=== PATIENT | female | born 1935 | race African-American/Black ===

== ENCOUNTER 2021-10-14 13:32 | Inpatient (IN) | payer OTHER ==
[2021-10-14 15:48] LABS: VENOUS BASE EXCESS 1.1 mmol/L (-2-2); VENOUS O2 SATURATION 60.6 % (70-80); VENOUS PCO2 41.6 mmHg (38-52); VENOUS PH 7.412 (7.310-7.410)
[2021-10-14 15:56] LABS: BASO % 0.3 % (0-2.0); EOS % 0.5 % (0-4.5); HEMATOCRIT 44.8 % (32.4-45.2); HEMOGLOBIN 14.1 GM/dL (10.7-15.3); LYMPH % 23.8 % (8-40); MCH 26.9 pg (25.7-33.7); MCHC 31.4 g/dl (32.0-36.0); MEAN CELL VOLUME 85.6 fl (80-96); MEAN PLT VOLUME 9.3 fl (7.5-11.1); MONO % 9.5 % (3.8-10.2); NEUT % 65.9 % (42.8-82.8); PLATELET COUNT 168 10^3/uL (134-434); RBC 5.23 M/mm3 (3.60-5.2); WHITE BLOOD COUNT 3.4 K/mm3 (4.0-10.0)
[2021-10-14 16:01] LABS: INR 1.1 (0.83-1.09); PROTHROMBIN TIME (PATIENT) 12.7 SEC (9.7-13.0)
[2021-10-14 16:03] LABS: ACTIVATED PTT 27.4 SECONDS (25.2-36.5)
[2021-10-14 16:05] LABS: CHLORIDE 103 mmol/L (98-107); SODIUM 136 mmol/L (136-145)
[2021-10-14 16:07] LABS: ALBUMIN 3.9 g/dl (3.4-5.0); ANION GAP 6 MMOL/L (8-16); CALCIUM 9.6 mg/dL (8.5-10.1); CO2 27 mmol/L (21-32); GLUCOSE,RANDOM 99 mg/dL (74-106)
[2021-10-14 16:08] LABS: BLOOD UREA NITROGEN 10.1 mg/dL (7-18)
[2021-10-14 16:10] LABS: SGPT/ALT 17 U/L (13-61)
[2021-10-14 16:11] LABS: CREATININE 0.9 mg/dL (0.55-1.3); SGOT/AST 22 U/L (15-37)
[2021-10-14 16:12] LABS: BILIRUBIN,TOTAL 0.9 mg/dL (0.2-1); TOT PROT 7.4 g/dl (6.4-8.2)
[2021-10-14 16:13] LABS: ALK PHOS 100 U/L (45-117)
[2021-10-14] MEDS ORDERED: ASPIRIN 81 MG CHEWABLE TABLETS PO ONE (16:42)
[2021-10-14] MEDS ORDERED: ATORVASTATIN CA 80 MG TABLET (FP) PO ONE (16:55)
[2021-10-14] MEDS ORDERED: ATORVASTATIN CA 80 MG TABLET (FP) ONE (17:52)
[2021-10-14] MEDS ORDERED: ASPIRIN 81 MG CHEWABLE TABLETS ONE (17:52)
[2021-10-14 18:11] LABS: EPI CELLS 25 /uL (0-25.1); HYALINE CASTS 1 /uL (0-3.1); PH,URINE 6.5 (5.0-8.0); URINE APPEARANCE CLEAR; URINE BACTERIA 103 /uL (0-1359); URINE BILIRUBIN NEGATIVE (NEGATIVE); URINE COLOR YELLOW; URINE GLUCOSE (UA) NEGATIVE (NEGATIVE); URINE KETONE NEGATIVE (NEGATIVE); URINE LEUK ESTERASE TRACE (NEGATIVE); URINE NITRITE NEGATIVE (NEGATIVE); URINE PROTEIN NEGATIVE (NEGATIVE); URINE RBC 7 /uL (0-23.9); URINE UROBILINOGEN 0.2 mg/dL (0.2-1.0); URINE WBC 13 /uL (0-25.8)
[2021-10-14] MEDS ORDERED: LISINOPRIL 20 MG TABLET PO ONE (23:38)
[2021-10-15] MEDS ORDERED: MELATONIN 5 MG TABLETS PO ONE (00:39)
[2021-10-15] MEDS ORDERED: LISINOPRIL 20 MG TABLET ONE (01:51)
[2021-10-15] MEDS ORDERED: MELATONIN 5 MG TABLETS ONE (01:51)
[2021-10-15] MEDS ORDERED: CLOPIDOGREL BISULFATE 300 MG TABLET PO ONE (07:58)
[2021-10-15 09:16] LABS: BASO % 0.4 % (0-2.0); EOS % 0.9 % (0-4.5); HEMATOCRIT 41.4 % (32.4-45.2); HEMOGLOBIN 13.2 GM/dL (10.7-15.3); LYMPH % 41.3 % (8-40); MCH 27.2 pg (25.7-33.7); MCHC 31.9 g/dl (32.0-36.0); MEAN CELL VOLUME 85.2 fl (80-96); MEAN PLT VOLUME 9.7 fl (7.5-11.1); NEUT % 46.4 % (42.8-82.8); PLATELET COUNT 166 10^3/uL (134-434); RBC 4.86 M/mm3 (3.60-5.2); WHITE BLOOD COUNT 2.9 K/mm3 (4.0-10.0)
[2021-10-15 09:35] LABS: CALCIUM 9.4 mg/dL (8.5-10.1)
[2021-10-15 09:37] LABS: ACTIVATED PTT 29.2 SECONDS (25.2-36.5); INR 1.12 (0.83-1.09); PROTHROMBIN TIME (PATIENT) 12.9 SEC (9.7-13.0)
[2021-10-15 09:39] LABS: CREATININE 0.9 mg/dL (0.55-1.3)
[2021-10-15 09:40] LABS: PHOSPHOROUS 3.8 mg/dL (2.5-4.9); TOT PROT 7.3 g/dl (6.4-8.2)
[2021-10-15 09:55] LABS: BILIRUBIN,TOTAL 1.1 mg/dL (0.2-1)
[2021-10-15] MEDS ORDERED: ASPIRIN 81 MG CHEWABLE TABLETS ONE (11:41)
[2021-10-15] MEDS ORDERED: METOPROLOL TARTRATE 50 MG TABLET (FP) ONE ×2 (11:41→23:09)
[2021-10-15] MEDS ORDERED: ENOXAPARIN NA (PORCINE) 60 MG/0.6 ML DISP.SYRIN SQ ONE ×2 (11:42→23:09)
[2021-10-15] MEDS ORDERED: CLOPIDOGREL BISULFATE 300 MG TABLET ONE (11:42)
[2021-10-15] MEDS: ASPIRIN 81 MG CHEWABLE TABLETS PO SCH (12:07)
[2021-10-15] MEDS: METOPROLOL TARTRATE 50 MG TABLET (FP) PO SCH ×2 (12:08→23:24)
[2021-10-15] MEDS: ENOXAPARIN NA (PORCINE) 60 MG/0.6 ML DISP.SYRIN SQ SCH ×2 (12:08→23:18)
[2021-10-15] MEDS ORDERED: ATORVASTATIN CA 40 MG TABLET (FP) ONE (23:09)
[2021-10-15] MEDS: ATORVASTATIN CA 40 MG TABLET (FP) PO SCH (23:24)
[2021-10-16 00:31] VITALS: BMI 22.6
[2021-10-16] MEDS: ENOXAPARIN NA (PORCINE) 40 MG/0.4 ML DISP.SYRIN SQ SCH (09:39)
[2021-10-16] MEDS: ASPIRIN 81 MG CHEWABLE TABLETS PO SCH (09:39)
[2021-10-16] MEDS ORDERED: CLOPIDOGREL BISULFATE 75 MG TABLET (FP) PO SCH (10:00)
[2021-10-16] MEDS ORDERED: PNEUMOC 13-VAL CONJ-DIP CRM/PF 0.5 ML DISP.SYRIN IM ONE (10:00)
[2021-10-16] MEDS: MEMANTINE HCL 5 MG TABLET (UD) PO SCH (21:11)
[2021-10-16] MEDS: ATORVASTATIN CA 40 MG TABLET (FP) PO SCH (21:11)
[2021-10-17] MEDS: ENOXAPARIN NA (PORCINE) 40 MG/0.4 ML DISP.SYRIN SQ SCH (09:48)
[2021-10-17] MEDS: MEMANTINE HCL 5 MG TABLET (UD) PO SCH (09:48)
[2021-10-17] MEDS: ASPIRIN 81 MG CHEWABLE TABLETS PO SCH (09:48)
[2021-10-17] MEDS ORDERED: DONEPEZIL HCL 10 MG TABLET (FP) PO SCH (10:00)
[2021-10-17 10:24] VITALS: PULSE 74
[2021-10-17 12:52] LABS: HEMATOCRIT 40.3 % (32.4-45.2); HEMOGLOBIN 13.4 GM/dL (10.7-15.3); MCH 27.9 pg (25.7-33.7); MCHC 33.2 g/dl (32.0-36.0); MEAN CELL VOLUME 84.1 fl (80-96); MEAN PLT VOLUME 9.5 fl (7.5-11.1); PLATELET COUNT 155 10^3/uL (134-434); RBC 4.79 M/mm3 (3.60-5.2); RDW 13.9 % (11.6-15.6); WHITE BLOOD COUNT 3.9 K/mm3 (4.0-10.0)
[2021-10-17 13:05] LABS: CALCIUM 9.6 mg/dL (8.5-10.1)
[2021-10-17 13:06] LABS: ALBUMIN 3.9 g/dl (3.4-5.0)
[2021-10-17 13:09] LABS: BLOOD UREA NITROGEN 15.3 mg/dL (7-18); CREATININE 0.8 mg/dL (0.55-1.3)
[2021-10-17 13:10] LABS: TOT PROT 7.4 g/dl (6.4-8.2)
[2021-10-17 13:13] LABS: BILIRUBIN,TOTAL 1.8 mg/dL (0.2-1)
[2021-10-17 14:27] VITALS: BP 133/69; TEMP 98.1
== END 2021-10-17 18:06 | disposition home health service (06) | DRG 204 ==
LOC: JER 13:32 → JERBED 17:12 → J4W 10-15 23:33
PROVIDERS: ADMIT Internal Medicine; ATTEND Internal Medicine
DX: I95.1 Orthostatic hypotension (principal); I24.8 Other forms of acute ischemic heart disease; F03.91 Unspecified dementia, unspecified severity, with behavioral disturbance; D72.819 Decreased white blood cell count, unspecified; E78.5 Hyperlipidemia, unspecified; I10 Essential (primary) hypertension; R42 Dizziness and giddiness; R45.1 Restlessness and agitation; E86.0 Dehydration
CPT/HCPCS: 36415; 70450-TC; 70551-TC; 71045-TC-FY; 80053; 80061; 81003; 82550; 82803; 82962; 83735; 84100; 84443; 84484; 85025; 85027; 85610; 85730; 87040; 87086; 90670; 93005; 93010; 93306-TC; 93880-TC; 97116-GP; 97161-GP; 99285-25; C9803; U0003; U0005